=== PATIENT | female | born 1985 | race African-American/Black ===

== ENCOUNTER 2017-06-24 19:41 | Emergency (ER) | payer BC ==
[2017-06-24] MEDS ORDERED: ONDANSETRON 4 MG TAB.RAPDIS SL ONE (20:13)
[2017-06-24] MEDS ORDERED: NORMAL SALINE 1000 ML 1,000 ML IV PRN (20:13)
[2017-06-24] MEDS ORDERED: HYDROCODONE/ACETAMINOPHEN 5-325 MG TABLET PO ONE (20:20)
--- NOTE | 2017-06-24 20:20 | ER Document Report ---
ED Medical Screen (RME) - General Chief Complaint: Lower Abdominal Pain Stated Complaint: NAUSEA ABDOMINAL PAIN Time Seen by Provider: 06/24/17 20:07 Mode of Arrival: Ambulatory Information source: Patient TRAVEL OUTSIDE OF THE [place] IN LAST 30 DAYS: No - HPI Patient complains to provider of: Abdominal pain with nausea and vomiting Onset: This afternoon Notes: 06/24/17 20:19 Patient is a 32-year-old female presenting to the emergency room complaining of right lower quadrant abdominal pain with nausea and vomiting that started around 330 this afternoon, he started as a crampy pain and has worsened throughout the day, she has vomited at least 7 times is to tolerate any p.o. intake, she is visiting from the [facility] planning to run a half marathon tomorrow, she did stop along the way and have a breakfast burrito with hashbrowns but her father ate the same thing and did not get sick, she denies any sick contacts, has a history of a urinary tract infection approximately 6 months ago with similar symptoms - Related Data Allergies/Adverse Reactions: No Known Allergies Allergy (Verified 06/24/17 20:03) Home Medications: Current Home Medications Sertraline HCl [Sertraline HCl] 1 tab PO DAILY 06/24/17 [History] Past Medical History Renal/ Medical History: Denies: Hx Peritoneal Dialysis Physical Exam - Vital signs Vitals: Temp Pulse Resp BP Pulse Ox 99.2 F 86 18 142/92 H 100 06/24/17 20:04 06/24/17 20:04 06/24/17 20:04 06/24/17 20:04 06/24/17 20:04 Course - Vital Signs Vital signs: Temp Pulse Resp BP Pulse Ox 99.2 F 86 18 142/92 H 100 06/24/17 20:04 06/24/17 20:04 06/24/17 20:04 06/24/17 20:04 06/24/17 20:04
[2017-06-24 20:55] LABS: APPEARANCE,URINE CLOUDY; BILIRUBIN,URINE NEGATIVE (NEGATIVE); GLUCOSE, URINE NEGATIVE (NEGATIVE); KETONES,URINE 20 mg/dL (NEGATIVE); LEUKOCYTE ESTERASE,URINE TRACE (NEGATIVE); NITRITE,URINE NEGATIVE (NEGATIVE); PROTEIN,URINE NEGATIVE (NEGATIVE); URINE SPECIFIC GRAVITY 1.025; UROBILINOGEN,URINE NEGATIVE mg/dL (<2.0)
--- NOTE | 2017-06-24 22:18 | ER Document Report ---
ED General - General Chief Complaint: Lower Abdominal Pain Stated Complaint: NAUSEA ABDOMINAL PAIN Time Seen by Provider: 06/24/17 20:07 Mode of Arrival: Ambulatory Notes: Patient is a 32-year-old female without past medical history, prior history of a diagnostic laparoscopy to evaluate for endometriosis, who presents with 4-5 hours of suprapubic and right lower abdominal pain. States that the pain started gradually over the course of about a half hour and then reached maximal intensity. Since that time she has had a dull, constant, aching pain to the lower abdomen. She has had several episodes of nonbilious vomiting. Nothing improves or worsens her symptoms. She states that she had a similar episode approximately 6 months ago at which time it was apparently a urinary tract infection. At that time she did have a CT scan to evaluate for an acute appendicitis which was negative. She has not noted that anything seems to improve or worsen her symptoms today. She has not had any associated diarrhea, vaginal bleeding or vaginal discharge. She is visiting from out of town has not been able to see her primary care doctor regarding today's concerns. TRAVEL OUTSIDE OF THE [place] IN LAST 30 DAYS: No - Related Data Allergies/Adverse Reactions: No Known Allergies Allergy (Verified 06/24/17 20:03) Home Medications: Current Home Medications Sertraline HCl [Sertraline HCl] 1 tab PO DAILY 06/24/17 [History] Past Medical History - General Information source: Patient - Social History Smoking Status: Never Smoker Frequency of alcohol use: None Drug Abuse: None Lives with: Family Family History: Reviewed & Not Pertinent Renal/ Medical History: Denies: Hx Peritoneal Dialysis Review of Systems - Review of Systems Notes: Constitutional: Negative for fever. HENT: Negative for sore throat. Eyes: Negative for visual changes. Cardiovascular: Negative for chest pain. Respiratory: Negative for shortness of breath. Gastrointestinal: Positive for abdominal pain and vomiting Genitourinary: Negative for dysuria. Musculoskeletal: Negative for back pain. Skin: Negative for rash. Neurological: Negative for headaches, weakness or numbness. 10 point ROS negative except as marked above and in HPI. Physical Exam - Vital signs Vitals: Temp Pulse Resp BP Pulse Ox 99.2 F 86 18 142/92 H 100 06/24/17 20:04 06/24/17 20:04 06/24/17 20:04 06/24/17 20:04 06/24/17 20:04 Interpretation: Hypertensive Notes: PHYSICAL EXAMINATION: GENERAL: Well-appearing, well-nourished and in no acute distress. HEAD: Atraumatic, normocephalic. EYES: Pupils equal round and reactive to light, extraocular movements intact, sclera anicteric, conjunctiva are normal. ENT: nares patent, oropharynx clear without exudates. Moist mucous membranes. NECK: Normal range of motion, supple without lymphadenopathy LUNGS: Breath sounds clear to auscultation bilaterally and equal. No wheezes rales or rhonchi. HEART: Regular rate and rhythm without murmurs ABDOMEN: Soft, mild tenderness to the suprapubic region as well as the right adnexa. No focal right lower quadrant tenderness. No rebound or guarding. No upper abdominal tenderness. Bowel sounds are present. EXTREMITIES: Normal range of motion, no pitting or edema. No cyanosis. NEUROLOGICAL: No focal neurological deficits. Moves all extremities spontaneously and on command. PSYCH: Normal mood, normal affect. SKIN: Warm, Dry, normal turgor, no rashes or lesions noted. Course - Re-evaluation Re-evalutation: 06/24/17 22:17 Patient presents with right adnexal pain with associated vomiting that is been present for the past 3 hours. Was relatively rapid in onset and has gotten progressively worse since that time. Her abdominal exam does not show any focal right lower quadrant abdominal tenderness. No rebound or guarding. Mild right adnexal tenderness otherwise no focal abdominal tenderness. No vaginal bleeding or discharge. Urinalysis unremarkable. Suspect likely ovarian cyst given history although ovarian torsion remains on the differential given the acuity of her pain and associated vomiting. I developed low clinical suspicion for an acute appendicitis although given the patient's pain is in the right lower region she is having vomiting and remains on the differential. Will proceed with labs, transvaginal ultrasound and reassess 06/25/17 00:49 Transvaginal ultrasound shows cystic changes in the uterus and patient is planning to follow-up with her [facility] [facility] next week. Repeat abdominal exam does not show any focal right lower quadrant tenderness. No rebound or guarding. She continues to have mild suprapubic abdominal tenderness possibly secondary to findings on ultrasound. Her laboratories are unremarkable without leukocytosis. She remains afebrile without tachycardia. I have had a risks and benefits conversation with the patient regarding CT imaging of the abdomen and pelvis at this time. We discussed, based on today's exam and labs there is a possibility that they could have a diagnosis that could be better clarified by CT and that this could possibly gear changer. We discussed the risks of radiation to the abdomen and pelvis. We discussed the alternative of close follow-up with their primary care physician for a recheck of the abdomen within 24 hours as well as reasons to return to the emergency department. After this conversation, the patient has elected to avoid CT imaging of the abdomen and pelvis at this time. They have capacity. They have verbalized the importance of close follow-up as well as reasons to return to the emergency department including worsening abdominal pain, fever, persistent vomiting, or any other symptoms that are worrisome to them. - Vital Signs Vital signs: Temp Pulse Resp BP Pulse Ox 99.2 F 85 18 135/89 H 100 06/24/17 20:04 06/25/17 01:04 06/25/17 01:04 06/25/17 01:04 06/25/17 01:04 - Laboratory Result Diagrams: 06/24/17 22:41 06/24/17 22:41 Laboratory results interpreted by me: 06/24/17 06/24/17 06/24/17 20:11 22:41 22:41 RDW 14.1 H Glucose 122 H Urine Ketones 20 H Ur Leukocyte Esterase TRACE H - Diagnostic Test Radiology reviewed: Reports reviewed Discharge - Discharge Clinical Impression: Lower abdominal pain Vomiting Qualifiers: Vomiting type: unspecified Vomiting Intractability: non-intractable Nausea presence: with nausea Qualified Code(s): R11.2 - Nausea with vomiting, unspecified Condition: Good Disposition: HOME, SELF-CARE Instructions: Observation for Appendicitis ([facility]) Additional Instructions: You have been seen in the Emergency Department (ED) for abdominal pain. Your evaluation did not identify a clear cause of your symptoms but was generally reassuring. Please follow up with your doctor as soon as possible regarding today's emergent visit and the symptoms that are bothering you. Return to the ED if your abdominal pain worsens or fails to improve, you develop bloody vomiting, bloody diarrhea, you are unable to tolerate fluids due to vomiting, fever greater than 101, or other symptoms that concern you.
[2017-06-24 22:51] LABS: ABSOLUTE BASOPHILS # (AUTO) 0.1 10^3/uL (0.0-0.2); ABSOLUTE LYMPHOCYTES (AUTO) 1.6 10^3/uL (0.5-4.7); ABSOLUTE MONOCYTES (AUTO) 0.4 10^3/uL (0.1-1.4); ABSOLUTE NEUT (AUTO) 5.9 10^3/uL (1.7-8.2); BASOPHILS % (AUTO) 0.7 % (0-2); EOSINOPHILS % (AUTO) 0.3 % (0-6); HEMATOCRIT 36.8 % (36.0-47.0); HEMOGLOBIN 12.4 g/dL (12.0-15.5); HGB HCT DIFFERENCE 0.4; LYMPHOCYTES % (AUTO) 20.5 % (13-45); MEAN CORPUSCULAR HEMOGLOBIN 28.2 pg (27.0-33.4); MEAN CORPUSCULAR HGB CONC 33.9 g/dL (32.0-36.0); MEAN CORPUSCULAR VOLUME 83 fl (80-97); MONOCYTES % (AUTO) 4.8 % (3-13); RED BLOOD COUNT 4.41 10^6/uL (3.72-5.28); RED CELL DISTRIBUTION WIDTH 14.1 % (11.5-14.0); SEGMENTED NEUTROPHILS % (AUTO) 73.7 % (42-78)
[2017-06-24 23:14] LABS: ALANINE AMINOTRANSFERASE 24 U/L (9-52); ALBUMIN 4.2 g/dL (3.5-5.0); ALKALINE PHOSPHATASE 67 U/L (38-126); ANION GAP 10 (5-19); ASPARTATE AMINO TRANSFERASE 22 U/L (14-36); BILIRUBIN,DIRECT 0.4 mg/dL (0.0-0.4); BILIRUBIN,TOTAL 0.9 mg/dL (0.2-1.3); BLOOD UREA NITROGEN 12 mg/dL (7-20); CALCIUM 9.6 mg/dL (8.4-10.2); CARBON DIOXIDE 25 mmol/L (22-30); CHLORIDE 104 mmol/L (98-107); CREATININE RESULT 0.89 mg/dL (0.52-1.25); GLUCOSE 122 mg/dL (75-110); POTASSIUM 4.5 mmol/L (3.6-5.0)
[2017-06-24 23:15] LABS: LIPASE 41.9 U/L (23-300); TOTAL PROTEIN 7.7 g/dL (6.3-8.2)
--- NOTE | 2017-06-25 00:24 | RADIOLOGY REPORT (SQ) ---
EXAM DESCRIPTION: U/S NON OB PEL TV W/DOPPLER COMPLETED DATE/TIME: 06/24/2017 11:54 pm REASON FOR STUDY: right adnexal pain COMPARISON: None. TECHNIQUE: Dynamic and static grayscale images acquired of the pelvis via transvaginal approach and recorded on PACS. Additional selected color Doppler and spectral images recorded. LIMITATIONS: None. FINDINGS: UTERUS: Contour normal. No mass. ENDOMETRIAL STRIPE: Complex cystic component measures 1.6 x 1.3 x 1.0 cm. Remaining adjacent endomet rial stripe measures 1.5 cm in thickness. CERVIX: No nabothian cysts. RIGHT OVARY: No abnormal masses. RIGHT OVARY DOPPLER: Normal arterial vascular flow without evidence for torsion. LEFT OVARY: No abnormal masses. LEFT OVARY DOPPLER: Normal arterial vascular flow without evidence for torsion. FREE FLUID: None noted. OTHER: No other significant finding. MEASUREMENTS: UTERUS: 7.1 cm. ENDOMETRIAL STRIPE: Abnormal as described above. RIGHT OVARY: 3.3 cm. LEFT OVARY: 3.4 cm. IMPRESSION: Nonspecific cystic enlargement of the endometrial cavity measures up to 1.6 cm. 6 week ultrasound surveillance and/or Gynecology consultation recommended. TECHNICAL DOCUMENTATION: JOB ID: [id number] [employer]- All Rights Reserved
[2017-06-25 01:05] VITALS: BP 135/89
== END 2017-06-25 01:04 | disposition home or self-care (01) ==
LOC: ER 19:41
DX: R10.30 Lower abdominal pain, unspecified (principal); R11.2 Nausea with vomiting, unspecified; R10.31 Right lower quadrant pain; Z98.890 Other specified postprocedural states; Z79.899 Other long term (current) drug therapy
CPT/HCPCS: 99284; 96360; 36415; 87086; 83690; 84703; 85025; 80053; 81001; 76830; 93976; S0119; J7030